=== PATIENT | male | born 1970 | race Caucasian/White ===

== ENCOUNTER 2020-12-05 08:41 | Day surgery (SDC) | payer OTHER ==
[~2020-12-05] VITALS: Ht 193 cm; Wt 97.8 kg
[2020-12-05] VITALS (7 sets, daily range): BP systolic 121–139; BP diastolic 88–96; PULSE 65–83; TEMP 98.7
[~2020-12-05 08:41] MED LIST: BACTRIM DS 8001 TAB PO; DOXYCYCLINE 10100 MG PO; NO HOME MEDICATIONS
[2020-12-05] MEDS ORDERED: LIPITOR 10MG10 MG PO (09:17)
--- NOTE | 2020-12-05 10:25 | NUR ---
Pt returns from endo procedure via cart. Pt ambulates from cart to recliner with RN assist. Monitors on and alarms set. Call light within reach. Report received from ELEANOR Tamayo. Pt requests juice and muffin. Pt denies pain or nausea. Pt alert and oriented.
--- NOTE | 2020-12-05 10:35 | NUR ---
Pt taking food and drink well.
--- NOTE | 2020-12-05 11:35 | NUR ---
Discharge instructions given to pt. All questions answered to his satisfaction. Handed to him are a thank you card, discharge instructions, and a procedural photo record.
--- NOTE | 2020-12-05 11:40 | NUR ---
Pt transferred out of hospital via wheelchair and ELEANOR SANDRA, to private vehicle driven by Mom.
== END 2020-12-05 11:40 | disposition home or self-care (01) ==
LOC: SDCO 08:41
DX: Z12.11 Encounter for screening for malignant neoplasm of colon (principal); Z98.52 Vasectomy status; J45.909 Unspecified asthma, uncomplicated; N52.9 Male erectile dysfunction, unspecified; E78.5 Hyperlipidemia, unspecified
CPT/HCPCS: J2704; J3010